=== PATIENT | male | born 1960 | race Caucasian/White ===

== ENCOUNTER 2019-04-25 14:49 | Emergency (ER) | payer OTHER, SELFPAY ==
[2019-04-25] VITALS (7 sets, daily range): BP systolic 139–166; BP diastolic 78–85; PULSE 63–69; RESP 12–22; TEMP 36.6; O2SAT 98–100; BMI 29.0; BMI 28.9
--- NOTE | 2019-04-25 15:13 | CT_ITS ---
STUDY: CTA HEAD AND NECK WITH CONTRAST REASON FOR EXAM: Male, 59 years old. Expressive aphasia RADIATION DOSAGE (If Supplied By Facility): DLP = ( 658.75 ) mGycm TECHNIQUE: CT angiography was performed with a multi-detector CT scanner. Data acquisition was obtained from the skull base through the vertex following intravenous administration of 100ML IV Isovue 300. MIP images were reconstructed from the axial data set. Post-processing of the angiographic images was performed, with multiplanar reformation and 3D reconstruction. Individualized dose optimization techniques were used for this CT. COMPARISON: CT head 04/25/2018 FINDINGS: Apical lungs clear. Apical thoracic cage intact. Mild to moderate multilevel cervical degenerative disc disease most prominent in the cervical spine were uncovertebral joint hypertrophy contributes to mild foraminal narrowing. Craniofacial osseous structures intact. Small mucous retention cyst at the base of each maxillary sinus. Scalp, orbital and facial soft tissues unremarkable. Pharyngeal, laryngeal, cervical, supraclavicular soft tissues unremarkable. Aorta: Mild arch atherosclerosis, widely patent bovine cervical arch branching, normal subclavian arteries. Right carotid mild calcified plaque of the bulb and bifurcation, no stenosis or dissection. Left carotid patent CCA, patent bulb, patent ECA, occluded origin of the ICA, reconstituted by collaterals distally, diminutive through the skull base but patent. Cervical vertebral arteries: Normal bilaterally. Basilar artery, basilar tip, major cerebellopontine divisions, intracranial vertebral arteries: Normal. Posterior cerebral arteries: Normal. Communicating arteries: Normal. Anterior cerebral arteries: Normal. Middle cerebral arteries: Normal. No evidence of acute occlusion/thrombosis. Dural venous sinuses and major venous tributaries enhance and arborizes normally. 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 No right carotid stenosis. Normal vertebral arteries. Normal intracranial posterior and anterior circulation. No evidence of acute thrombosis. Electronically Signed: Arjun Colvin MD at 15:57 EDT Tel , Service support ,
--- NOTE | 2019-04-25 15:13 | CT_ITS ---
We are attempting to reach an attending provider to discuss findings. An addendum with communication details will be sent when the communication is complete. STUDY: CT BRAIN WITHOUT CONTRAST REASON FOR EXAM: Male, 59 years old. Expressive aphasia intermittent, on blood thinners, onset 2 weeks ago RADIATION DOSAGE (If Supplied By Facility): DLP = ( 863.6 ) mGycm TECHNIQUE: Transaxial CT imaging of the brain was performed without administration of intravenous contrast material. Sagittal and coronal 2-D MPR. Individualized dose optimization techniques were used for this CT. COMPARISON: None. FINDINGS: Small mucous retention cyst at the base of the maxillary sinus. Paranasal sinuses otherwise clear. Mastoid air cells and middle ear cavities clear. Craniofacial osseous structures normal. Extra cranial soft tissues including orbital contents exhibit no acute process. A low density region within the deep white matter left frontoparietal may represent a late subacute or chronic infarction. A small similar focus left anterior frontal may also be compatible with late subacute or chronic infarction. Small low-density focus of the right anterior frontal garcia radiata white matter favoring chronic vascular ischemic disease. No acute cranial bleed. Normal pituitary, brainstem and cerebellum. CT/Brain/Head without Contrast IMPRESSION: Multifocal heterogeneous low density features within the left frontal deep white matter in a pattern that could reflect late subacute or chronic infarctions. Mild features of the right of chronic microvascular ischemic disease in the anterior right frontal white matter. A follow-up MRI of the brain without contrast is recommended to assess chronicity of the findings. The presence of restricted diffusion on MRI may assist in defining any more recent infarct. Electronically Signed: Arjun Colvin MD at 15:32 EDT Tel , Service support ,
[2019-04-25 15:20] LABS: Absolute Lymphocyte Count 2.25 X10^3/uL (0.83-4.51); Absolute Neutrophil Count 8.6 X10^3/uL (2.0-7.7); Basophil# 0.02 X10^3/uL; Basophil% 0.2 % (0-1); Eosinophil# 0.07 X10^3/uL; Eosinophils% 0.5 % (0-5); Hematocrit 34.9 % (40-54); Hemoglobin 12.1 g/dL (13.0-16.5); Lymphocyte # 2.25 X10^3/ul (4.0); Lymphocyte % 17.5 % (19-41); Mean Corp Hgb Conc 34.7 g/dL (32-36); Mean Corpuscular Hgb 31.4 pg (27.0-32.0); Mean Corpuscular Volume 90.6 fL (80-94); Mean Platelet Vol. 11.9 fl (6.2-12.0); Monocyte% 14.8 % (0-10); NRBC Flagged by Analyzer 0 % (0-5); Neutrophil # 8.56 X10^3/uL (2.7-7.7); Neutrophil % 66.7 % (47-70); POSITIVE DIFFERENTIAL YES; Platelet Count 194 K/mm3 (150-450); RBC Distribution Width SD 39.7 fl (35.1-43.9); Red Blood Count 3.85 M/mm3 (4.6-6.2); White Blood Count 12.8 K/mm3 (4.4-11.0)
[2019-04-25 15:23] LABS: International Normalized Ratio 1.5; Prothrombin Time (Protime)PT. 17.9 SECONDS (11.7-14.9)
[2019-04-25 15:24] LABS: Partial Thromboplast Time 38.8 Seconds (24.1-36.2)
--- NOTE | 2019-04-25 15:25 | CM.ED ---
SOCIAL WORK RESPONDED TO STROKE ALERT. INTRODUCED SELF AND ROLE TO PATIENT'S SIGNIFICANT OTHER, J LUIS. THIS WORKER TO REMAIN AVAILABLE FOR NEEDS. CHARLIE HUNTLEY, [employer], PEGGER.
[2019-04-25 15:33] LABS: Differential Indicated SCAN CRITERIA MET
[2019-04-25 15:34] LABS: Anion Gap 8 (5-15); BUN 39 mg/dL (7-18); BUN/Creat Ratio 17.9 RATIO (10-20); Calcium,Total 9.4 mg/dL (8.5-10.1); Chloride 98 mmol/L (98-107); Creatinine, Serum 2.18 mg/dL (0.70-1.30); EST Glomerular Filtration Rate 33 mL/min (>60); Est Glom Filt Rate - Afr Amer 40 mL/min (>60); Estimated Creatinine Clearance 42.42 ml/min; Glucose 437 mg/dL (74-106); Potassium 4.7 mmol/L (3.5-5.1); Sodium Level 131 mmol/L (136-145)
--- NOTE | 2019-04-25 15:45 | ED.RN ---
ON PT ARRIVAL DR. HOLCOMB MADE AWARE OF PT SX. PT ASYMPTOMATIC ON TRIAGE. PT WITH DVT IN RIGHT LOWER LEG. PT REFUSING TO MOVE OFF OF BED. PT ABLE TO MOVE ON OWN ACCORD, BUT REFUSING TO MOVE IT AT THIS TIME.
--- NOTE | 2019-04-25 15:50 | ED.RN ---
PT COMPLAINS OF RIGHT LEG PAIN RELATED TO A RUPTURES CYST. PT IS ON ELIQUIS. WHEN QUESTED ABOUT ONSET OF S/S PT STATED IT HAS BEEN 2 WEEKS. WHEN ASKED ABOUT MAIN REASON FOR VISIT TODAY WAS PAIN IN IS LEFT LEG AND NOT IMPROVING. DR HOLCOMB WAS THEN CALLED INTO THE ROOM TO EVALUATED. RICHIE JENKINS
[2019-04-25] MEDS: 0.9% Normal Saline 1,000 ML 1000 ML IV ×2 (16:06→17:20)
[2019-04-25 16:16] LABS: Anisocytosis RARE; Macrocytosis RARE; Platelet Estimate ADEQUATE (ADEQ); Red Cell Morphology N CHROM NORMAL (NORM C&C)
--- NOTE | 2019-04-25 16:20 | ED.DCSUM_ITS ---
- ER Visit Summary Date of Service: 04/25/19 Chief Complaint: Expressive aphasia History of Present Illness: The patient is a 59 M who presents with expressive aphasia that began today approximately 3 hours prior to arrival. Patient states he was also having some weakness in his right hand. Patient has pain in his right leg due to a hematoma. Patient states that the pain is worse with ambulation. Patient states he cannot walk due to the pain. Patient denies any headaches. Patient denies any nausea or vomiting. Patient denies any chest pain. Patient denies any shortness of breath. Patient denies any neck or back pain. Patient states that he was having some difficulty getting some of the wor ds out that he wanted to say. Patient was able to do this after a couple seconds. Patient states he has had similar symptoms when he has been dehydrated. Physical Examination: Vital signs are stable. Patient is afebrile. Patient is in no acute distress. Cranial nerves II through XII are intact. Patient does have a slight expressive aphasia that resolves after a few seconds. Strength is 5/5 bilaterally in the upper extremities and left lower extremity. Patient is having difficulty lifting his right leg due to pain. Strength is 5/5 in the extensor hallucis longus and plantar flexors. There are no sensory deficits noted. There are no visual field deficits. Ucvems-cy-rprc is intact bilaterally. Heart was regular rate and rhythm. Lungs are clear and equal travon aterally. Abdomen is soft and nontender. Oral mucosa is pink and moist. Neck is supple. Trachea is midline. There is no JVD. Examination of the right lower extremity reveals ecchymosis of the distal leg and ankle which is resolving. Compartments are soft. Pedal pulses are equal bilaterally. Sensation is intact to light touch in all digits. There is no pain with passive motion of the toes or ankle. Test Results: Noncontrast head CT was obtained. There is a low-density region within the deep white matter of the left frontal parietal and in the left anterior frontal areas which may be subacute or chronic infarct. Patient states he has had these for 15 years. There is also a small low-density focus in the right anterior frontal area which is consistent with chronic vascular disease. There is no acute bleed. CTA of the head neck was obtained. There is a chronic occlusion of the left internal carotid artery there is no right carotid stenosis. Vertebral arteries are normal. There is normal intracranial posterior and anterior circulation. There is no evidence of acute thrombosis. These were interpreted by the radiologist. CBC showed a slight leukocytosis of 12.8. Metabolic profile showed a creatinine of 2.18. There are no prior results for comparison. INR is 1.5. EKG was ordered but the patient refused. Chest x-ray was ordered but the patient refused. Emergency Department Course and Treatment: Due to his episode of expressive aphasia, a stroke team was called. The stroke neurologist does not recommend TPA at this time. She recommended follow-up with MRI. Patient does not want MRI. Patient states he knows that this is from dehydration. Patient was given 2 L of IV fluids. I recommended admission for possible acute kidney injury as well as stroke work-up. Patient does not want to be admitted to the hospital. Patient will sign out AGAINST MEDICAL ADVICE. Patient understood and was agreeable with the plan. All questions were answered. Disposition: Discharge AGAINST MEDICAL ADVICE Impression: 1. Acute kidney injury 2. Expressive aphasia, resolved This note was generated with [employer] dictation software. It may contain incorrect words, spelling, and punctuation that were not noted in review of the chart prior to signing Capacity - Capacity Assessment Tool Can the patient make a choice & communicate that choice?: Yes Can the patient understand benefits, risks and alternatives?: Yes Can the patient make a logical, rational choice?: Yes Is the choice the patient makes consistent w/ their values?: Yes i.e. close relative (spouse, child, parent, sibling)?: Yes ED Disposition - Plan for ED Patient: Disposition: Against Medical Advice Diagnosis: Acute kidney injury, Expressive aphasia Instructions: DEHYDRATION (6y-Adult) Referrals: Estefanía Lyons, LEONARD-C [Primary Care Provider] - 3-5 Days
--- NOTE | 2019-04-25 16:50 | ED.RN ---
PER DR. HOLCOMB VERBAL ORDER TO D/C THE [facility]. PT REMAINS AT 0. A+OX4.
[2019-04-26 09:11] LABS: Bedside Glucose 403 mg/dL (70-110)
[2019-04-26 14:46] LABS: Pathologist Review Reviewed
== END 2019-04-25 18:37 | disposition left against medical advice (07) ==
PROVIDERS: Emergency Provider Emergency Medicine; Family Provider Nurse Practitioner Family; PCP Nurse Practitioner Family
DX: N17.9 Acute kidney failure, unspecified (principal); R47.01 Aphasia; I65.22 Occlusion and stenosis of left carotid artery; R53.1 Weakness; M79.604 Pain in right leg; S80.11XA Contusion of right lower leg, initial encounter; S90.01XA Contusion of right ankle, initial encounter; X58.XXXA Exposure to other specified factors, initial encounter; Y93.9 Activity, unspecified; Y92.9 Unspecified place or not applicable; Y99.9 Unspecified external cause status; E11.9 Type 2 diabetes mellitus without complications; I10 Essential (primary) hypertension; Z79.01 Long term (current) use of anticoagulants; Z79.84 Long term (current) use of oral hypoglycemic drugs; Z79.899 Other long term (current) drug therapy
CPT/HCPCS: 70450; 70496; 70498; 80048; 82962; 84484; 85025; 85610; 85730; 96360; 96361; 99285; J7030; Q9967; A4216